=== PATIENT | female | born 1955 | race African-American/Black ===

== ENCOUNTER 2017-05-12 22:04 | Emergency (ER) | payer MEDICARE, OTHER ==
[~2017-05-12] VITALS: Ht 157.5 cm; Wt 78.9 kg
[~2017-05-12 22:04] MED LIST: ALLO100T PO; ASPI325T8 PO; CHOL10002 PO; CRESTOR20 MG PO; DOCU-109 PO; LISI10TA2 PO; METF850T2 PO; MULT-650 PO; MULT1TAB6 PO; OXYC1TAB9 PO; RANI150T2 PO
[2017-05-12 22:10] VITALS: BP 122/74
--- NOTE | 2017-05-12 22:25 | PHYS DOC ---
Past History Past Medical History: Arthritis, CAD, Depression, Diabetes, Fibromyalgia, GERD , High Cholesterol, Hypertension, Other Past Surgical History: Coronary Bypass Surgery, Other Smoking: Quit Greater Than 1 Year Alcohol Use: None Drug Use: None Adult General Chief Complaint Chief Complaint: KNEE SWELLING HPI HPI Patient is a 62 year old female who presents with complaint of "I think I have gout in my knee." She has been up on her knee lately as she has been at a for the past 2 days. No recent travel. She noticed tonight that her left knee was painful and swollen. No known injury. She states that she normally takes Percocet for her pain but is out. She hasn't been taking her Allopurinol "but I restarted it today." No SOA, no chest pain; no other complaints or injuries. Review of Systems Review of Systems Constitutional: Denies fever or chills Respiratory: Denies cough or shortness of breath Cardiovascular: No chest pain Musculoskeletal: see HPI Integument: Denies rash or skin lesions Current Medications Current Medications Current Medications Medications (Trade) Dose Ordered Sig/Aime Start Time Stop Time Status Last Admin Dose Admin Oxycodone/ Acetaminophen (Percocet 5/325) 2 tab 1X ONCE 05/12/17 22:45 05/12/17 22:46 Allergies Allergies Allergies Coded Allergies Type Severity Reaction Last Updated Verified morphine Allergy Intermediate 05/12/17 Yes epinephrine Allergy Unknown 05/12/17 Yes gabapentin Allergy Unknown 05/12/17 Yes prednisone Allergy Unknown 05/12/17 Yes tramadol Allergy Unknown 05/12/17 Yes Physical Exam Physical Exam Constitutional: Well developed, well nourished, no acute distress, non-toxic appearance. Extremities: Lower extremity: Left knee with slight swelling (medially); no effusion. Faint erythema over anterior surface. Normal ROM. No palpable masses posterior knee. NVI distally. Neurologic: Alert and oriented X 3, normal motor function, normal sensory function, no focal deficits noted. Current Patient Data Vital Signs Vital Signs Date Time Temp Pulse Resp B/P (MAP) Pulse Ox O2 Delivery O2 Flow Rate FiO2 05/12/17 22:10 99.3 69 20 122/74 (90) 97 Room Air Course & Med Decision Making Course & Med Decision Making Patient findings consistent with gout. No evidence of septic joint (she can ambulate on knee and has full ROM). No evidence of DVT. She is to continue on her Allopurinol. Given Percocet po here (has a ride) and a rx for 20. Follow up with her PCP for any changes or return. Patient ambulatory at discharge in no distress Dragon Disclaimer Dragon Disclaimer This chart was dictated in whole or in part using Voice Recognition software in a busy, high-work load, and often noisy Emergency Department environment. It may contain unintended and wholly unrecognized errors or omissions. Departure Departure: Impression: Primary Impression: Left knee pain Additional Impression: Gout attack Disposition: 01 HOME, SELF-CARE Condition: GOOD Referrals: MEÑO GREGG MD (PCP) Patient Instructions: Gout, Azxi-pa-Xxir Scripts Oxycodone Hcl/Acetaminophen (PERCOCET 5-325 MG TABLET) 1 Each Tablet 1-2 TAB PO Q4-6HRS, #20 TAB Prov: REGAN HOPSON MD 05/12/17 Problem Qualifiers REGAN HOPSON MD May 12, 2017 22:25
[2017-05-12] MEDS ORDERED: OXYC-323 PO (22:27)
[2017-05-12] MEDS ORDERED: oxyCODONE/APAP 5/325 1 TAB TABLET PO ONE (22:45)
== END 2017-05-12 22:35 | disposition home or self-care (01) ==
LOC: ER 22:04
DX: M10.9 Gout, unspecified (principal); M25.562 Pain in left knee; I25.10 Atherosclerotic heart disease of native coronary artery without angina pectoris; E11.9 Type 2 diabetes mellitus without complications; E78.00 Pure hypercholesterolemia, unspecified; I10 Essential (primary) hypertension; K21.9 Gastro-esophageal reflux disease without esophagitis; M79.7 Fibromyalgia; M19.90 Unspecified osteoarthritis, unspecified site; Z95.1 Presence of aortocoronary bypass graft; Z87.891 Personal history of nicotine dependence; Z88.5 Allergy status to narcotic agent; Z88.6 Allergy status to analgesic agent; Z88.8 Allergy status to other drugs, medicaments and biological substances
CPT/HCPCS: 99284

== ENCOUNTER 2017-09-28 02:36 | Emergency (ER) | payer MEDICARE, OTHER ==
[~2017-09-28] VITALS: Ht 157.5 cm; Wt 78.9 kg
[~2017-09-28 02:36] MED LIST changes: +OXYC-323 PO
[2017-09-28] MEDS ORDERED: ONDANSETRON PF 4 MG/2 ML VIAL. IV ONE (03:00)
[2017-09-28] MEDS ORDERED: FAMOTIDINE 20 MG/2 ML VIAL IVP ONE (03:00)
--- NOTE | 2017-09-28 03:03 | EKG ---
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
[2017-09-28 03:27] LABS: BASO # 0.1 x10^3/uL (0.0-0.2); BASO % 1 % (0-3); EOS # 0.3 x10^3/uL (0.0-0.7); EOS % 4 % (0-3); HEMATOCRIT 34.5 % (36.0-47.0); HEMOGLOBIN 11.2 g/dL (12.0-15.5); LYMPH # 2.4 x10^3/uL (1.0-4.8); LYMPH % 31 % (24-48); MEAN CORPUSCULAR HEMOGLOBIN 28 pg (25-35); MEAN CORPUSCULAR HGB CONC 33 g/dL (31-37); MEAN CORPUSCULAR VOLUME 86 fL (79-100); MONO # 0.4 x10^3/uL (0.0-1.1); MONO % 6 % (0-9); NEUT # 4.6 x10^3uL (1.8-7.7); NEUT % 59 % (31-73); PLATELET COUNT 223 x10^3/uL (140-400); RED CELL DISTRIBUTION WIDTH 16.9 % (11.5-14.5); WHITE BLOOD COUNT 7.8 x10^3/uL (4.0-11.0)
[2017-09-28 03:39] LABS: BACTERIA,URINE FEW /HPF (0-FEW); BILIRUBIN,URINE NEG (NEG); CLARITY,URINE CLEAR; COLOR,URINE STRAW; GLUCOSE,URINE NEG (NEG); NITRITE,URINE NEG (NEG); SQUAMOUS EPITHELIAL CELL,UR OCC /LPF; UROBILINOGEN,URINE 0.2 mg/dL (0.2 mg/dL)
[2017-09-28 03:44] LABS: ALBUMIN 4.4 g/dL (3.4-5.0); ALBUMIN/GLOBULIN RATIO 1.1 (1.0-1.7); CALCIUM 10.1 mg/dL (8.5-10.1); CREATININE 1.6 mg/dL (0.6-1.0); GFR 39.3; TOTAL BILIRUBIN 0.2 mg/dL (0.2-1.0); TOTAL PROTEIN 8.3 g/dL (6.4-8.2)
--- NOTE | 2017-09-28 04:04 | RAD ---
INDICATION : abd pain x 3 days
hx of pancreatitis COMPARISON: None TECHNIQUE: Multiple ultrasound images obtained through the abdomen in grayscale and color. FINDINGS: Liver: Visualized portion appears echogenic and prominent in size Gallbladder: No wall thickening or stones. IVC: Partially distended at level of liver. Common Bile Duct: 9 mm Pancreas: Only partially seen with some heterogeneity. Pancreatic duct measures up to 2.4 mm Right Kidney: No hydronephrosis. 3.9 cm cyst IMPRESSION: 1. Visualized portion of common bile duct is mildly dilated. Although it is possible that this is the patient's baseline appearance causes such as a distal stricture, lesion or stone remain within the differential. If more complete characterization is desired follow-up MRCP could BE obtained. 2. Cystic lesion of the right kidney. 3. Liver is mildly echogenic. Nonspecific but can be seen with fatty infiltration. Portions the liver not well seen on this exam. 4. Pancreatic duct is mildly prominent. 5. Pancreas is only partially seen with some regions of heterogeneity. Although this heterogeneity could be artifactual in nature, pathologic causes such as pancreatitis or lesion in the area is not excluded. If the MRCP is obtained it may be helpful to obtain pre and postcontrast pancreatic protocol images as well to further evaluate. Electronically signed by: Bebo Zabala MD (09/28/2017 4:01 AM) [facility]
--- NOTE | 2017-09-28 04:41 | PHYS DOC ---
Past History Past Medical History: Anxiety, Arthritis, CHF, Depression, Diabetes, High Cholesterol, Heart Disease, Hypertension, Other Past Surgical History: Coronary Bypass Surgery, Other Smoking: Quit Greater Than 1 Year Alcohol Use: None Drug Use: None Adult General Chief Complaint Chief Complaint: ABDOMINAL PAIN [facility] 62-year-old female patient multiple medical problems complaining of epigastric pain as a sharp and constant pain for the last 3 days with radiation to lower back that getting worse with eating and having bowel movements. Patient rated her pain 10/10 and complaining of nausea and anorexia and constipation but had a bowel movement before coming to ER. Patient states she has history of pancreatitis several years ago with the same pain. Patient denies urinary symptoms, fever and chills, chest pain, shortness of breath, drinking alcohol or using illegal drugs. Patient states she took Percocet as her routine pain medication at home without change of her pain. Review of Systems Review of Systems Constitutional: Denies fever or chills [] Eyes: Denies change in visual acuity, redness, or eye pain [] HENT: Denies nasal congestion or sore throat [] Respiratory: Denies cough or shortness of breath [] Cardiovascular: No additional information not addressed in HPI [] GI: Reports abdominal pain and nausea and constipation, denies vomiting, bloody stools or diarrhea [] : Denies dysuria or hematuria [] Musculoskeletal: Denies back pain or joint pain [] Integument: Denies rash or skin lesions [] Neurologic: Denies headache, focal weakness or sensory changes [] Endocrine: Denies polyuria or polydipsia [] All other systems were reviewed and found to be within normal limits, except as documented in this note. Current Medications Current Medications Current Medications Medications (Trade) Dose Ordered Sig/[facility] Start Time Stop Time Status Last Admin Dose Admin Famotidine (Pepcid Vial) 20 mg 1X ONCE 09/28/17 03:00 09/28/17 03:01 DC 09/28/17 03:19 20 MG Fentanyl Citrate (Fentanyl 2ml Vial) 50 mcg 1X ONCE 09/28/17 04:00 09/28/17 04:02 DC Ondansetron HCl (Zofran) 4 mg 1X ONCE 09/28/17 03:00 09/28/17 03:01 DC 09/28/17 03:18 4 MG Allergies Allergies Allergies Coded Allergies Type Severity Reaction Last Updated Verified morphine Allergy Intermediate 7/21/17 Yes epinephrine Allergy Unknown 05/12/17 Yes gabapentin Allergy Unknown 05/12/17 Yes prednisone Allergy Unknown 05/12/17 Yes tramadol Allergy Unknown 05/12/17 Yes Physical Exam Physical Exam Constitutional: Moderate distress, non-toxic appearance,anxious. [] HENT: Normocephalic, atraumatic, bilateral external ears normal, oropharynx dry , no oral exudates, nose normal. [] Eyes: PERRLA, EOMI, conjunctiva normal, no discharge. [] Neck: Normal range of motion, no tenderness, supple, no stridor. [] Cardiovascular:Heart rate regular rhythm, no murmur [] Lungs & Thorax: Bilateral breath sounds clear to auscultation [] Abdomen: Bowel sounds normal, soft, no tenderness, no masses, no pulsatile masses, epigastric guarding. [] Skin: Warm, dry, no erythema, no rash. [] Back: No tenderness, no CVA tenderness. [] Extremities: No tenderness, no cyanosis, no clubbing, ROM intact, no edema. [] Neurologic: Alert and oriented X 3, normal motor function, normal sensory function, no focal deficits noted. [] Psychologic: Affect normal, judgement normal, anxious Current Patient Data Vital Signs Vital Signs Date Time Temp Pulse Resp B/P (MAP) Pulse Ox O2 Delivery O2 Flow Rate FiO2 09/28/17 02:36 98.6 60 20 98 Room Air Lab Results Laboratory Tests Test 09/28/17 03:00 White Blood Count 7.8 x10^3/uL (4.0-11.0) Red Blood Count 4.00 x10^6/uL (3.50-5.40) Hemoglobin 11.2 g/dL (12.0-15.5) L Hematocrit 34.5 % (36.0-47.0) L Mean Corpuscular Volume 86 fL (79-100) Mean Corpuscular Hemoglobin 28 pg (25-35) Mean Corpuscular Hemoglobin Concent 33 g/dL (31-37) Red Cell Distribution Width 16.9 % (11.5-14.5) H Platelet Count 223 x10^3/uL (140-400) Neutrophils (%) (Auto) 59 % (31-73) Lymphocytes (%) (Auto) 31 % (24-48) Monocytes (%) (Auto) 6 % (0-9) Eosinophils (%) (Auto) 4 % (0-3) H Basophils (%) (Auto) 1 % (0-3) Neutrophils # (Auto) 4.6 x10^3uL (1.8-7.7) Lymphocytes # (Auto) 2.4 x10^3/uL (1.0-4.8) Monocytes # (Auto) 0.4 x10^3/uL (0.0-1.1) Eosinophils # (Auto) 0.3 x10^3/uL (0.0-0.7) Basophils # (Auto) 0.1 x10^3/uL (0.0-0.2) Urine Collection Type Unknown Urine Color Straw Urine Clarity Clear Urine pH 5.5 Urine Specific [place] 1.020 Urine Protein 100 mg/dl (NEG-TRACE) Urine Glucose (UA) Neg mg/dL (NEG) Urine Ketones (Stick) Neg mg/dL (NEG) Urine Blood Small (NEG) Urine Nitrite Neg (NEG) Urine Bilirubin Neg (NEG) Urine Urobilinogen Dipstick 0.2 mg/dL (0.2 mg/dL) Urine Leukocyte Esterase Neg (NEG) Urine RBC 3-5 /HPF (0-2) Urine WBC 1-4 /HPF (0-4) Urine Squamous Epithelial Cells Occ /LPF Urine Bacteria Few /HPF (0-FEW) Sodium Level 142 mmol/L (136-145) Potassium Level 4.0 mmol/L (3.5-5.1) Chloride Level 107 mmol/L (98-107) Carbon Dioxide Level 24 mmol/L (21-32) Anion Gap 11 (6-14) Blood Urea Nitrogen 16 mg/dL (7-20) Creatinine 1.6 mg/dL (0.6-1.0) H Estimated GFR (Cockcroft-Gault) 39.3 BUN/Creatinine Ratio 10 (6-20) Glucose Level 148 mg/dL (70-99) H Calcium Level 10.1 mg/dL (8.5-10.1) Total Bilirubin 0.2 mg/dL (0.2-1.0) Aspartate Amino Transferase (AST) 19 U/L (15-37) Alanine Aminotransferase (ALT) 28 U/L (14-59) Alkaline Phosphatase 58 U/L (46-116) Troponin I Quantitative < 0.017 ng/mL (0-0.055) FQ-Cqm-P-Type Natriuretic Peptide 167 pg/mL (0-124) H Total Protein 8.3 g/dL (6.4-8.2) H Albumin 4.4 g/dL (3.4-5.0) Albumin/Globulin Ratio 1.1 (1.0-1.7) Lipase 270 U/L (73-393) EKG EKG EKG interpreted by me. EKG at 0 255 showed normal sinus rhythm at rate of 61, normal ST and T-wave, normal EKG Radiology/Procedures Radiology/Procedures [] Course & Med Decision Making Course & Med Decision Making Pertinent Labs and Imaging studies reviewed. (See chart for details) Evaluation of patient in ER showed 62-year-old male patient with multiple medical problems presented to ER with complaining of epigastric pain and nausea for 3 days that getting worse. Patient had epigastric guarding without tenderness. Patient had unremarkable labs except for creatinine of 1.6 and blood sugar of 148 and hemoglobin of 11.2. Patient treated with Zofran and fentanyl and Pepcid but asking for more pain medication. Ultrasound of gallbladder did not show acute cholecystitis. Plan to obtain CT abdomen and pelvis with contrast and admit patient to hospitalist with diagnosis of intractable abdominal pain. Dr. Mayfield on-call hospitalist consulted at 0445 and accepted the admission. [] Dragon Disclaimer Dragon Disclaimer This electronic medical record was generated, in whole or in part, using a voice recognition dictation system. Departure Departure: Impression: Primary Impression: Intractable abdominal pain Additional Impressions: Nausea Renal insufficiency Diabetes mellitus History of coronary artery disease History of chronic CHF Disposition: ADMITTED INPATIENT (At 0445) Condition: IMPROVED Referrals: MEÑO GREGG MD (PCP) Problem Qualifiers PORSHA IRIZARRY MD Sep 28, 2017 04:41
[2017-09-28] MEDS ORDERED: IOHEXOL 240 MG/ML 50ML VIAL. ONE (04:56)
[2017-09-28] MEDS ORDERED: IV NORMAL SALINE 1,000ML 1,000 ML IV SCH (05:00)
[2017-09-28] MEDS ORDERED: ONDANSETRON PF 4 MG/2 ML VIAL. IV PRN (05:00)
[2017-09-28] MEDS ORDERED: CONTRAST GIVEN MC PRN (05:15)
[2017-09-28] MEDS ORDERED: IOHEXOL 300 MG/ML 75 ML VIAL. IV ONE (05:30)
[2017-09-28] MEDS ORDERED: IOHEXOL 240 MG/ML 50ML VIAL. PO ONE (05:30)
--- NOTE | 2017-09-28 06:44 | RAD ---
INDICATION: Epigastric pain COMPARISON: None. TECHNIQUE: Axial CT images were obtained through the abdomen and pelvis with intravenous contrast. One or more of the following individualized dose reduction techniques were utilized for this examination: 1. Automated exposure control; 2. Adjustment of the mA and/or kV according to patient size; 3. Use of iterative reconstruction technique. FINDINGS: Sub-4 mm left lung base nodule. Partial visualization of poststernotomy changes. Coronary artery calcific atherosclerosis partially seen. Calcific atherosclerosis without definite abdominal aortic aneurysm. Liver is mildly low attenuation. Mild prominence of intrahepatic bile ducts. Common bile measures 9 mm distally. Pancreatic duct also appears prominent in size. Peripancreatic edema. Couple low-density foci are seen within the pancreas including within the body and tail measuring up to approximately 6 mm. These may be fat-containing but too small to definitively characterize on this exam. Spleen unremarkable. No definite left-sided hydronephrosis. Urinary bladder is largely decompressed. 38 mm suspected cystic lesion right kidney. No right-sided hydronephrosis. Uterus is visualized. Colonic diverticulosis. Appendix is not well seen. No dilated loops of bowel to suggest obstruction. Degenerative changes of the spine. This contributes to multilevel central canal neural foraminal stenosis. Grade 1 anterolisthesis of L4 on 5 Within the left proximal femur there is relative lucency of the marrow seen. IMPRESSION: 1. Dilatation of the biliary tree is identified. Would correlate with symptoms within the region and if more information is desired a follow-up MRCP could be obtained to further evaluate and ensure that this is not from a pathologic process such as a distal biliary stricture, stone or mass. 2. There is also some dilatation of the pancreatic duct which could be related to this finding. There is a couple of low density foci within the pancreas. This could be secondary to mesenteric fat within the area but if an MRCP is obtained would consider also obtaining pre and postcontrast pancreatic protocol images to ensure that there is not an alternative cause for these small low attenuation foci. 3. Probable cystic lesion right kidney. 4. Sub-4 mm lung base nodule. Fleischner Society recommendations for solitary solid lung nodule follow up.: In a low risk patient: <6mm - No follow up required. 6-8mm - 6-[address], then CT at 18-24 months. >8mm - CT at 3 months, PET/CT or tissue sampling. In a high risk patient (history of smoking or other known risk factors): <6mm - Follow up CT at 12 months. 6-8mm - 6-[address], then CT at 18-24 months. >8mm - CT at 3 months, PET/CT or tissue sampling. Fleischner Society recommendations for multiple solid lung nodule follow up.: In a low risk patient: <6mm - No follow up required. 6-8mm - 3-[address], then CT at 18-24 months. >8mm - CT at 3-6 months, then at 18-24 months. PET/CT or tissue sampling based on most suspicious nodule. In a high risk patient (history of smoking or other known risk factors): <6mm - Follow up CT at 12 months. 6-8mm - 3-[address], then CT at 18-24 months. >8mm - CT at 3-6 months, PET/CT or tissue sampling option based on most suspicious nodule. Electronically signed by: Bebo Zabala MD (09/28/2017 6:40 AM) [facility]
[2017-09-28 07:30] VITALS: BP 152/90
== END 2017-09-28 07:50 | disposition left against medical advice (07) ==
LOC: ER 02:36 → 1 SOUTH 04:45 → UNDOADMOB 04:45 → ER 07:50
DX: R10.13 Epigastric pain (principal); R11.0 Nausea; N28.9 Disorder of kidney and ureter, unspecified; I11.0 Hypertensive heart disease with heart failure; I50.9 Heart failure, unspecified; I25.810 Atherosclerosis of coronary artery bypass graft(s) without angina pectoris; E78.00 Pure hypercholesterolemia, unspecified; F41.9 Anxiety disorder, unspecified; M19.90 Unspecified osteoarthritis, unspecified site; F32.9 Major depressive disorder, single episode, unspecified; E11.9 Type 2 diabetes mellitus without complications; Z87.891 Personal history of nicotine dependence; Z88.5 Allergy status to narcotic agent; Z88.6 Allergy status to analgesic agent; Z88.8 Allergy status to other drugs, medicaments and biological substances
CPT/HCPCS: 36415; 74177; 76705; 80053; 81001; 83690; 83880; 84484; 85025; 93005; 96374; 96375; 96376; 99285; J2405; J3010; Q9966; Q9967; S0028

== ENCOUNTER 2017-09-28 12:53 | Emergency (ER) | payer MEDICARE, OTHER ==
[~2017-09-28] VITALS: Ht 157.5 cm; Wt 78.9 kg
[2017-09-28] MEDS ORDERED: IV NORMAL SALINE 1,000ML 1,000 ML IV ONE (14:00)
[2017-09-28 14:01] LABS: BASO # 0.1 x10^3/uL (0.0-0.2); BASO % 1 % (0-3); EOS % 0 % (0-3); HEMATOCRIT 34.2 % (36.0-47.0); HEMOGLOBIN 11.3 g/dL (12.0-15.5); LYMPH # 1.4 x10^3/uL (1.0-4.8); LYMPH % 17 % (24-48); MEAN CORPUSCULAR HEMOGLOBIN 28 pg (25-35); MEAN CORPUSCULAR HGB CONC 33 g/dL (31-37); MEAN CORPUSCULAR VOLUME 85 fL (79-100); MONO # 0.3 x10^3/uL (0.0-1.1); MONO % 4 % (0-9); NEUT # 6.4 x10^3uL (1.8-7.7); NEUT % 78 % (31-73); PLATELET COUNT 233 x10^3/uL (140-400); RED BLOOD COUNT 4.04 x10^6/uL (3.50-5.40); RED CELL DISTRIBUTION WIDTH 16.6 % (11.5-14.5); WHITE BLOOD COUNT 8.1 x10^3/uL (4.0-11.0)
[2017-09-28 14:10] LABS: ALBUMIN 4.5 g/dL (3.4-5.0); CALCIUM 10.5 mg/dL (8.5-10.1); CREATININE 1.4 mg/dL (0.6-1.0); GFR 45.8; MAGNESIUM 1.7 mg/dL (1.8-2.4); TOTAL BILIRUBIN 0.3 mg/dL (0.2-1.0); TOTAL PROTEIN 8.8 g/dL (6.4-8.2)
[2017-09-28 14:11] LABS: POTASSIUM 4.6 mmol/L (3.5-5.1)
[2017-09-28] MEDS ORDERED: HYDROmorphone PF 1 MG/ML DISP.SYRIN IV ONE (14:15)
[2017-09-28 15:22] VITALS: BP 117/83
--- NOTE | 2017-09-28 16:18 | PHYS DOC ---
Past History Past Medical History: Anxiety, Arthritis, CHF, Depression, Diabetes, High Cholesterol, Heart Disease, Hypertension, Other Past Surgical History: Coronary Bypass Surgery, Other Smoking: Quit Greater Than 1 Year Alcohol Use: None Drug Use: None Adult General Chief Complaint Chief Complaint: ABDOMINAL PAIN HPI HPI Patient is a 62 year old F who presents with sharp constant epigastric and RUQ pain with intermittent episodes of worsening. She states that her pain radiates to the mid and lower back. She feels that this is similar to her previous episode of pancreatitis. She states that her pain is worse when she eats or drinks anything. She also describes nausea. She states that she has not been taking her medications over the past few days. Padmini denies other associated symptoms Review of Systems Review of Systems Constitutional: Denies fever or chills [] Eyes: Denies change in visual acuity, redness, or eye pain [] HENT: Denies nasal congestion or sore throat [] Respiratory: Denies cough or shortness of breath [] Cardiovascular: No additional information not addressed in HPI [] GI: Negative except HPI : Denies dysuria or hematuria [] Musculoskeletal: Denies back pain or joint pain [] Integument: Denies rash or skin lesions [] Neurologic: Denies headache, focal weakness or sensory changes [] Endocrine: Denies polyuria or polydipsia [] All other systems were reviewed and found to be within normal limits, except as documented in this note. Family History Family History No significant family history was reported Current Medications Current Medications Current Medications Medications (Trade) Dose Ordered Sig/Aime Start Time Stop Time Status Last Admin Dose Admin Hydromorphone HCl (Dilaudid) 1 mg 1X ONCE 09/28/17 14:15 09/28/17 14:16 DC 09/28/17 14:09 1 MG Sodium Chloride 1,000 ml @ 1,000 mls/hr 1X ONCE 09/28/17 14:00 09/28/17 14:59 DC 09/28/17 14:07 1,000 MLS/HR Allergies Allergies Allergies Coded Allergies Type Severity Reaction Last Updated Verified epinephrine Allergy Intermediate 09/28/17 Yes gabapentin Allergy Intermediate 09/28/17 Yes morphine Allergy Intermediate 09/28/17 Yes prednisone Allergy Intermediate 09/28/17 Yes tramadol Allergy Intermediate 09/28/17 Yes Physical Exam Physical Exam Constitutional: Well developed, well nourished, non-toxic appearance. [] Mild distress HENT: Normocephalic, atraumatic, bilateral external ears normal, oropharynx moist, no oral exudates, nose normal. [] Eyes: EOMI, conjunctiva normal, no discharge. [] Neck: Normal range of motion, no tenderness, supple, no stridor. [] Cardiovascular:Heart rate regular rhythm, Lungs & Thorax: Bilateral breath sounds clear to auscultation [] Abdomen: Bowel sounds normal, soft, no masses, no pulsatile masses. Moderate epigastric and RUQ TTP Skin: Warm, dry, no erythema, no rash. [] Back: No tenderness, no CVA tenderness. [] Extremities: No tenderness, no cyanosis, no clubbing, ROM intact, no edema. [] Neurologic: Alert and oriented X 3, normal motor function, normal sensory function, no focal deficits noted. [] Psychologic: Affect normal, judgement normal, mood normal. [] Current Patient Data Vital Signs Vital Signs Date Time Temp Pulse Resp B/P (MAP) Pulse Ox O2 Delivery O2 Flow Rate FiO2 09/28/17 15:22 98.3 65 14 117/83 (94) 96 Room Air Lab Results Laboratory Tests Test 09/28/17 13:40 White Blood Count 8.1 x10^3/uL (4.0-11.0) Red Blood Count 4.04 x10^6/uL (3.50-5.40) Hemoglobin 11.3 g/dL (12.0-15.5) L Hematocrit 34.2 % (36.0-47.0) L Mean Corpuscular Volume 85 fL (79-100) Mean Corpuscular Hemoglobin 28 pg (25-35) Mean Corpuscular Hemoglobin Concent 33 g/dL (31-37) Red Cell Distribution Width 16.6 % (11.5-14.5) H Platelet Count 233 x10^3/uL (140-400) Neutrophils (%) (Auto) 78 % (31-73) H Lymphocytes (%) (Auto) 17 % (24-48) L Monocytes (%) (Auto) 4 % (0-9) Eosinophils (%) (Auto) 0 % (0-3) Basophils (%) (Auto) 1 % (0-3) Neutrophils # (Auto) 6.4 x10^3uL (1.8-7.7) Lymphocytes # (Auto) 1.4 x10^3/uL (1.0-4.8) Monocytes # (Auto) 0.3 x10^3/uL (0.0-1.1) Eosinophils # (Auto) 0.0 x10^3/uL (0.0-0.7) Basophils # (Auto) 0.1 x10^3/uL (0.0-0.2) Sodium Level 137 mmol/L (136-145) Potassium Level 4.6 mmol/L (3.5-5.1) Chloride Level 102 mmol/L (98-107) Carbon Dioxide Level 25 mmol/L (21-32) Anion Gap 10 (6-14) Blood Urea Nitrogen 15 mg/dL (7-20) Creatinine 1.4 mg/dL (0.6-1.0) H Estimated GFR (Cockcroft-Gault) 45.8 BUN/Creatinine Ratio 11 (6-20) Glucose Level 153 mg/dL (70-99) H Calcium Level 10.5 mg/dL (8.5-10.1) H Magnesium Level 1.7 mg/dL (1.8-2.4) L Total Bilirubin 0.3 mg/dL (0.2-1.0) Aspartate Amino Transferase (AST) 20 U/L (15-37) Alanine Aminotransferase (ALT) 27 U/L (14-59) Alkaline Phosphatase 59 U/L (46-116) Total Protein 8.8 g/dL (6.4-8.2) H Albumin 4.5 g/dL (3.4-5.0) Albumin/Globulin Ratio 1.0 (1.0-1.7) Lipase 212 U/L (73-393) EKG EKG [] Radiology/Procedures Radiology/Procedures Previous images were reviewed Course & Med Decision Making Course & Med Decision Making Pertinent Labs and Imaging studies reviewed. (See chart for details) Padmini requested to be transferred to as all of her doctor's are at . She was transferred in stable condition. Dragon Disclaimer Dragon Disclaimer This electronic medical record was generated, in whole or in part, using a voice recognition dictation system. Departure Departure: Impression: Primary Impression: Abdominal pain Disposition: 05 XFER OTHER Condition: STABLE Referrals: MEÑO GREGG MD (PCP) Problem Qualifiers Primary Impression: Abdominal pain Abdominal location: epigastric Qualified Codes: R10.13 - Epigastric pain JP RICHARDSON MD Sep 28, 2017 16:18
== END 2017-09-28 16:17 | disposition short-term general hospital (02) ==
LOC: ER 12:53
DX: R10.13 Epigastric pain (principal); R10.11 Right upper quadrant pain; E11.9 Type 2 diabetes mellitus without complications; I11.0 Hypertensive heart disease with heart failure; I50.9 Heart failure, unspecified; F41.9 Anxiety disorder, unspecified; F32.9 Major depressive disorder, single episode, unspecified; E78.00 Pure hypercholesterolemia, unspecified; M19.90 Unspecified osteoarthritis, unspecified site; Z95.1 Presence of aortocoronary bypass graft; Z87.891 Personal history of nicotine dependence; Z88.6 Allergy status to analgesic agent; Z88.5 Allergy status to narcotic agent; Z88.8 Allergy status to other drugs, medicaments and biological substances
CPT/HCPCS: 36415; 80053; 83690; 83735; 85025; 96361; 96374; 99285; J1170; J7030

== ENCOUNTER 2019-08-14 15:57 | Emergency (ER) | payer OTHER, MEDICARE, MEDICAID ==
[~2019-08-14] VITALS: Ht 157.5 cm; Wt 86.2 kg
[~2019-08-14 15:57] MED LIST changes: -METF850T2 PO; +METF850T8 PO; -OXYC-323 PO; +OXYC-411 PO; +OXYC1TAB15 PO; -OXYC1TAB9 PO
[2019-08-14 16:04] VITALS: BP 123/93
[2019-08-14] MEDS ORDERED: ACET-704 PO (16:24)
[2019-08-14] MEDS ORDERED: ORPH-16 PO (16:24)
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
[2019-08-14] MEDS ORDERED: ACETAMINOPHEN/CODEINE 300/30MG TABLET PO ONE (16:45)
== END 2019-08-14 16:41 | disposition home or self-care (01) ==
LOC: ER 15:57
DX: S39.012A Strain of muscle, fascia and tendon of lower back, initial encounter (principal); M19.90 Unspecified osteoarthritis, unspecified site; I11.0 Hypertensive heart disease with heart failure; I50.9 Heart failure, unspecified; E11.9 Type 2 diabetes mellitus without complications; E78.00 Pure hypercholesterolemia, unspecified; Z95.0 Presence of cardiac pacemaker; Z87.891 Personal history of nicotine dependence; Z88.8 Allergy status to other drugs, medicaments and biological substances; Z88.5 Allergy status to narcotic agent; Z88.6 Allergy status to analgesic agent; V49.49XA Driver injured in collision with other motor vehicles in traffic accident, initial encounter; Y93.I9 Activity, other involving external motion; Y92.488 Other paved roadways as the place of occurrence of the external cause; Y99.8 Other external cause status
CPT/HCPCS: 99283

== ENCOUNTER → 2021-09-24 | Outpatient (CLI) | payer MEDICARE, OTHER ==
[~2021-09-24] MED LIST changes: +ACET-704 PO; +LISI10TA16 PO; -LISI10TA2 PO; +ORPH-16 PO; -OXYC-411 PO; +OXYC1TAB20 PO
[2021-09-24 09:01] LABS: ALBUMIN 3.9 g/dL (3.4-5.0); CREATININE 2.8 mg/dL (0.6-1.0); GFR 20.3; TOTAL BILIRUBIN 0.2 mg/dL (0.2-1.0); TOTAL PROTEIN 7.9 g/dL (6.4-8.2)
== END ==
LOC: LAB 07:46
PROVIDERS: ATTEND Internal Medicine Interventional Cardiology
DX: I10 Essential (primary) hypertension (principal)
CPT/HCPCS: 36415; 80053; 80061